=== PATIENT | male | born 1995 ===

== ENCOUNTER 2017-04-25 15:02 | Emergency (ER) | payer MEDICAID ==
[2017-04-25 17:20] LABS: Hematocrit 47 % (42-52); Hemoglobin 15.9 g/dl (14.0-18.0); Mean Corpuscular HGB Conc 34 g/dl (31-36); Mean Corpuscular Hemoglobin 30 pg (27-31); Mean Corpuscular Volume 90 fL (80-94); Mean Platelet Volume 10 um3 (7.4-10.4); Red Blood Count 5.24 10^6/ul (4.0-5.4); Red Cell Distribution Width 13 % (10.5-15); White Blood Count 7.9 10^3/ul (3.5-10.8)
[2017-04-25 17:31] LABS: Albumin 4.8 g/dL (3.2-5.2); Calcium 9.5 mg/dL (8.6-10.3); EGFR African American 172.8 (>60); EGFR Non-African American 134.4 (>60); Globulin 2.7 g/dL (2-4); Potassium 3.6 mmol/L (3.5-5.0); Total Bilirubin 0.7 mg/dL (0.2-1.0); Total Protein 7.5 g/dL (6.4-8.9)
[2017-04-25] MEDS ORDERED: Lidocaine 2% VISCOUS* 15 ML UDC PO ONE (19:19)
[2017-04-25] MEDS ORDERED: Al Hydrox/Mg Hydrox/Simet LIQ* 30 ML UDC PO ONE (19:19)
--- NOTE | 2017-04-25 19:23 | ED ---
Abdominal Pain/Male - HPI Summary HPI Summary: 21M presents with abdominal pain for months. The pain is worst when he eats and with spicy food. The pain is epigastric and burning in nature. He is on some medication for this prescribed by a free clinic in the area that he does not know the name of. He states pain comes and goes. He denies any n/v/d/c. He states he is essentially here for a physical. He denies any medical conditions. He is from [facility]. He speaks Norwegian with Kaylynn borges. - History of Current Complaint Chief Complaint: EDAbdPain Stated Complaint: ABD PAIN/SYNCOPE Time Seen by Provider: 04/25/17 18:54 Pain Intensity: 5 - Allergies/Home Medications Allergies/Adverse Reactions: Allergies Allergy/AdvReac Type Severity Reaction Status Date / Time No Known Allergies Allergy Verified 04/25/17 19:37 PMH/Surg Hx/FS Hx/Imm Hx Endocrine/Hematology History: Denies: Hx Anticoagulant Therapy Cardiovascular History: Denies: Hx Hypertension Infectious Disease History: No Infectious Disease History: Denies: Traveled Outside the [place] in Last 30 Days - Family History Known Family History: Negative: Cardiac Disease - Social History Alcohol Use: None Substance Use Type: Reports: None Smoking Status (MU): Never Smoked Tobacco Review of Systems Negative: Fever Negative: Chest Pain Negative: Shortness Of Breath Positive: Abdominal Pain. Negative: Vomiting, Diarrhea, Nausea All Other Systems Reviewed And Are Negative: Yes Physical Exam Triage Information Reviewed: Yes Vital Signs On Initial Exam: Initial Vitals Temp Pulse Resp BP Pulse Ox 98.4 F 72 16 122/80 100 04/25/17 15:08 04/25/17 15:08 04/25/17 15:08 04/25/17 15:08 04/25/17 15:08 Vital Signs Reviewed: Yes Appearance: Positive: Well-Appearing Skin: Positive: Warm, Dry Head/Face: Positive: Normal Head/Face Inspection Eyes: Positive: Normal, EOMI, MAYELIN, Conjunctiva Clear ENT: Positive: Normal ENT inspection, Pharynx normal, TMs normal Respiratory/Lung Sounds: Positive: Clear to Auscultation, Breath Sounds Present Cardiovascular: Positive: Normal, RRR Abdomen Description: Positive: Nontender, Soft Bowel Sounds: Positive: Present - Santiago Coma Scale Coma Scale Total: 15 Diagnostics - Vital Signs Vital Signs Temp Pulse Resp BP Pulse Ox 04/25/17 19:06 98.4 F 67 17 125/75 100 04/25/17 16:47 98.4 F 67 17 125/75 100 04/25/17 15:08 98.4 F 72 16 122/80 100 - Laboratory Lab Results: Lab Results 04/25/17 04/25/17 Range/Units 16:46 16:46 WBC 7.9 (3.5-10.8) 10^3/ul RBC 5.24 (4.0-5.4) 10^6/ul Hgb 15.9 (14.0-18.0) g/dl Hct 47 (42-52) % MCV 90 (80-94) fL MCH 30 (27-31) pg MCHC 34 (31-36) g/dl RDW 13 (10.5-15) % Plt Count 186 (150-450) 10^3/ul MPV 10 (7.4-10.4) um3 Neut % (Auto) 64.1 (38-83) % Lymph % (Auto) 26.9 (25-47) % Dewey % (Auto) 7.0 (1-9) % Eos % (Auto) 1.3 (0-6) % Baso % (Auto) 0.7 (0-2) % Absolute Neuts (auto) 5.1 (1.5-7.7) 10^3/ul Absolute Lymphs (auto) 2.1 (1.0-4.8) 10^3/ul Absolute Monos (auto) 0.6 (0-0.8) 10^3/ul Absolute Eos (auto) 0.1 (0-0.6) 10^3/ul Absolute Basos (auto) 0.1 (0-0.2) 10^3/ul Absolute Nucleated RBC 0 10^3/ul Nucleated RBC % 0 Sodium 137 (133-145) mmol/L Potassium 3.6 (3.5-5.0) mmol/L Chloride 107 (101-111) mmol/L Carbon Dioxide 25 (22-32) mmol/L Anion Gap 5 (2-11) mmol/L BUN 8 (6-24) mg/dL Creatinine 0.73 (0.67-1.17) mg/dL Est GFR ( Amer) 172.8 (>60) Est GFR (Non-Af Amer) 134.4 (>60) BUN/Creatinine Ratio 11.0 (8-20) Glucose 95 (70-100) mg/dL Calcium 9.5 (8.6-10.3) mg/dL Total Bilirubin 0.70 (0.2-1.0) mg/dL AST 16 (13-39) U/L ALT 16 (7-52) U/L Alkaline Phosphatase 86 (34-104) U/L Total Protein 7.5 (6.4-8.9) g/dL Albumin 4.8 (3.2-5.2) g/dL Globulin 2.7 (2-4) g/dL Albumin/Globulin Ratio 1.8 (1-3) Result Diagrams: 04/25/17 16:46 04/25/17 16:46 Lab Statement: Any lab studies that have been ordered have been reviewed, and results considered in the medical decision making process. Abdominal Pain Fem Course/Dx - Course Course Of Treatment: 21M presents for physicial exam. he also admits to epigastric pain that is worst with spicy food for 6 months. is on some medication already for it but does not know name. symptoms point to acid reflux. labs normal. nontender abdomen. will add maalox. instruction given in Norwegian. patient understands and agrees with plan - Diagnoses Differential Diagnosis/HQI/PQRI: Peptic Ulcer Disease, Other - acid reflux, normal physical exam Provider Diagnoses: Physical exam, Acid reflux Discharge - Discharge Plan Condition: Good Disposition: HOME Prescriptions: Al Hydrox/Mg Hydrox/Simet LIQ* [Maalox Plus*] 30 ml PO Q6H PRN #1 bottle PRN Reason: Dyspepsia Patient Education Materials: Gastroesophageal Reflux Disease (ED) Print Language: PORTUGUESE Referrals: [facility] [Outside] Additional Instructions: Kim 1 cucharada cada 6 horas para el reflujo cido segn lo necesario de la medicacin Evitar comidas picantes Regresar a la DE si desarrolla sntomas nuevos o que empeoran
[2017-04-25 19:50] VITALS: BP 123/74
== END 2017-04-25 19:49 | disposition home or self-care (01) ==
LOC: ED 15:02
DX: K21.9 Gastro-esophageal reflux disease without esophagitis (principal); Z00.00 Encounter for general adult medical examination without abnormal findings
CPT/HCPCS: 36415; 80053; 85025; 86703; 99282; A9270-GY